=== PATIENT | male | born 1990 | race Caucasian/White ===

== ENCOUNTER 2016-09-25 09:57 | Emergency (ER) | payer MEDICAID ==
[~2016-09-25] VITALS: Ht 177.8 cm; Wt 95.3 kg
[2016-09-25] MEDS ORDERED: LIDOCAINE 1%-EPI 1:100,000 20 ML VIAL TP ONE (10:15)
[2016-09-25] MEDS ORDERED: LIDOCAINE 1%-EPI 1:100,000 20 ML VIAL ONE (10:22)
--- NOTE | 2016-09-25 10:33 | NUR ---
dr townsend i and d of rle abscess, i then cleaned and dressed site, aci/rx x1 given. pt d/c'd home, ambulated w/o dif/ took all belongings.
[2016-09-25 10:35] VITALS: BP 119/65
== END 2016-09-25 10:36 | disposition home or self-care (01) ==
LOC: ER 09:57
DX: L02.416 Cutaneous abscess of left lower limb (principal)
CPT/HCPCS: A4663; J3490